=== PATIENT | male | born 1970 | race Caucasian/White ===

== ENCOUNTER 2021-02-11 09:12 | Day surgery (SDC) | payer SELFPAY ==
[~2021-02-11] VITALS: Ht 182.9 cm; Wt 97.2 kg
[2021-02-11] MEDS ORDERED: PRILOSEC 20MG20 MG PO (11:03)
[2021-02-11 11:19] VITALS: BP 138/95; PULSE 103; TEMP 98.2
[2021-02-11 12:35] VITALS: BP 113/82; PULSE 99
[2021-02-11 12:50] VITALS: BP 112/73; PULSE 88
[2021-02-11 13:05] VITALS: BP 108/77; PULSE 85; TEMP 99.1
[2021-02-11 13:15] VITALS: BP 128/81; PULSE 88
--- NOTE | 2021-02-11 13:25 | NUR ---
PT WAS TAKEN FROM THE ENDO PROCEDURE ROOM PER CART BACK INTO BAY #8. PT ASLEEP, WILL AROUSE TO NAME. DENIES PAIN OR NAUSEA, WILL CONT TO MONITOR PROGRESS.
--- NOTE | 2021-02-11 13:27 | NUR ---
PT TOLERATING BLUE REED MUFFIN AND WATER. DENIES NAUSEA AND PAIN. WILL CONT TO MONITOR.
--- NOTE | 2021-02-11 14:04 | NUR ---
PT TOLERATING FOOD AND FLUIDS. IV WAS TAKEN OUT WITHOUT DIFFICULTY. PT LUNGS ARE COARSE WITH SOME EXPIRATORY WHEEZES IN UPPER RIGHT FIELD, DIES CLEAR WITH COUGCH. PT STATES BEING A SMOKER AND AN ALCOHOLIC. CONTINUES TO TOLERATE FOOD AND FLUIDS.
--- NOTE | 2021-02-11 14:08 | NUR ---
PT DISMISSAL INSTRUCTIONS GIVEN, QUESTIONS ANSWERED. PT TAKEN PER WC TO PATIENT ADMISSION ENTRANCE.PT SISTER IS DRIVING FAMILY VEHICLE.
== END 2021-02-11 14:11 | disposition home or self-care (01) ==
LOC: SDCO 09:12
DX: K92.1 Melena (principal); K64.8 Other hemorrhoids; K91.89 Other postprocedural complications and disorders of digestive system; I85.00 Esophageal varices without bleeding; K29.30 Chronic superficial gastritis without bleeding; K29.80 Duodenitis without bleeding; F41.9 Anxiety disorder, unspecified; F32.9 Major depressive disorder, single episode, unspecified; G89.29 Other chronic pain
CPT/HCPCS: J7120